=== PATIENT | male | born 1945 | race Caucasian/White ===

== ENCOUNTER 2022-07-22 14:33 | Emergency (ER) | payer OTHER, MEDICARE ==
[~2022-07-22] VITALS: Ht 175.3 cm; Wt 98.0 kg
[~2022-07-22 14:33] MED LIST: ALBU8.5H17 IH; ASPI-611 PO; ATOR20TA66 PO; CHOL10002 PO; CLOP75TA34 PO; CYAN500T46 PO; FLUT1BLS14 IH; LISI2.5T14 PO; MAGN250T11 PO; MECL-226 PO
[2022-07-22 16:55] LABS: BASOPHILS # (AUTO) 0.1 X10'3 (0-0.2); BASOPHILS % (AUTO) 0.6 % (0-1); EOSINOPHILS # (AUTO) 0.2 X10'3 (0-0.9); EOSINOPHILS % (AUTO) 1.8 % (0-6); HEMOGLOBIN 14.8 g/dl (14.0-17.9); LYMPHOCYTES # (AUTO) 1.5 X10'3 (1.1-4.8); LYMPHOCYTES % (AUTO) 13.4 % (21-51); MEAN CORPUSCULAR HEMOGLOBIN 29.5 PG (27.0-31.0); MEAN CORPUSCULAR HGB CONC 33.7 g/dL (33.0-36.5); MEAN CORPUSCULAR VOLUME 87.5 FL (78-98); MEAN PLATELET VOLUME 7.6 FL (7.4-10.4); MONOCYTES # (AUTO) 0.6 X10'3 (0-0.9); MONOCYTES % (AUTO) 5.5 % (2-12); NEUTROPHILS # (AUTO) 8.8 X10'3 (1.8-7.7); NEUTROPHILS % (AUTO) 78.7 % (42-75); PLATELET COUNT 364 X10'3 (140-440); RED BLOOD COUNT 5.03 X10'6 (4.70-6.10); RED CELL DISTRIBUTION WIDTH 14.5 % (11.5-14.5); WHITE BLOOD COUNT 11.2 X10'3 (4.5-11.0)
[2022-07-22 17:09] LABS: ALANINE AMINOTRANSFERASE 46 U/L (12-78); ALBUMIN 3.7 G/DL (3.4-5.0); ALBUMIN/GLOBULIN RATIO 1.1 (1.1-1.5); ALKALINE PHOSPHATASE 123 IU/L (46-116); ANION GAP 4 (8-16); ASPARTATE AMINO TRANSFERASE 21 U/L (10-37); BILIRUBIN,TOTAL 0.4 MG/DL (0.1-1.0); BLOOD UREA NITROGEN 13 MG/DL (7-18); BUN/CREATININE RATIO 13.3 (5.4-32.0); CALCIUM 9.7 MG/DL (8.5-10.1); CHLORIDE 106 MMOL/L (99-107); CREATININE 0.98 MG/DL (0.60-1.10); GLUCOSE 135 MG/DL (70-104); SODIUM 139 MMOL/L (135-145); TOTAL CARBON DIOXIDE 28.8 MMOL/L (24-32); eGFR 75 ML/MIN
--- NOTE | 2022-07-22 17:55 | NUR ---
Per MD the stroke alert is to get a CT head and compare the read to the previous one
[2022-07-22 18:00] VITALS: BP 132/74
[2022-07-22] MEDS ORDERED: iohexol 350MG/ML 100ml bottle IV ONE (18:05)
[2022-07-22] MEDS ORDERED: meclizine 12.5mg tablet PO ONE (18:40)
== END 2022-07-22 20:15 | disposition home or self-care (01) ==
LOC: ER 14:34
DX: R42 Dizziness and giddiness (principal); R11.2 Nausea with vomiting, unspecified; E78.00 Pure hypercholesterolemia, unspecified; I10 Essential (primary) hypertension; J45.909 Unspecified asthma, uncomplicated; E11.9 Type 2 diabetes mellitus without complications
CPT/HCPCS: 36415; 70450; 71045; 80053; 84484; 85025; 93005; 99285; J8597; J3490; Q9967

== ENCOUNTER 2023-02-26 05:30 | Inpatient (IN) | payer OTHER, MEDICARE ==
[~2023-02-26] VITALS: Ht 180.3 cm; Wt 103.0 kg
[~2023-02-26 05:30] MED LIST changes: -ATOR20TA66 PO; +ATOR40TA PO; +CLOP75TA33 PO; -CLOP75TA34 PO; +MECL-159 PO; -MECL-226 PO
[2023-02-26] MEDS ORDERED: iohexol 350MG/ML 100ml bottle IV ONE (05:48)
[2023-02-26 05:55] LABS: BASOPHILS % (AUTO) 0.3 % (0-1); EOSINOPHILS # (AUTO) 0.5 X10'3 (0-0.9); EOSINOPHILS % (AUTO) 3.3 % (0-6); HEMATOCRIT 46.4 % (42.0-52.0); HEMOGLOBIN 15.4 g/dl (14.0-17.9); LYMPHOCYTES # (AUTO) 1.1 X10'3 (1.1-4.8); LYMPHOCYTES % (AUTO) 7.9 % (21-51); MEAN CORPUSCULAR HEMOGLOBIN 29.1 PG (27.0-31.0); MEAN CORPUSCULAR HGB CONC 33.1 g/dL (33.0-36.5); MEAN CORPUSCULAR VOLUME 87.8 FL (78-98); MONOCYTES # (AUTO) 0.8 X10'3 (0-0.9); MONOCYTES % (AUTO) 5.6 % (2-12); NEUTROPHILS # (AUTO) 11.7 X10'3 (1.8-7.7); NEUTROPHILS % (AUTO) 82.9 % (42-75); PLATELET COUNT 318 X10'3 (140-440); RED BLOOD COUNT 5.28 X10'6 (4.70-6.10); RED CELL DISTRIBUTION WIDTH 14.3 % (11.5-14.5); WHITE BLOOD COUNT 14.2 X10'3 (4.5-11.0)
[2023-02-26] MEDS ORDERED: normal saline 1000ML IV soln IVB ONE (05:55)
[2023-02-26] MEDS ORDERED: normal saline 1000ml 1,000 ML IV ONE (05:55)
--- NOTE | 2023-02-26 06:12 | NUR ---
PT EXPRESSED NUMBNESS TO R SIDE OF FACE DOWN TO TOES.
[2023-02-26 06:31] LABS: APTT 27 SECONDS (22-32)
--- NOTE | 2023-02-26 06:44 | NUR ---
PT STATED "BATHROOM" TO THIS RN AND WAS ABLE TO EXPRESS THE NEED TO URINATE. THIS RN ASSISTED WITH URINAL AND PT WAS ABLE TO REMAIN CONTINENT.
[2023-02-26 07:00] LABS: ALANINE AMINOTRANSFERASE 51 U/L (12-78); ALBUMIN/GLOBULIN RATIO 1.3 (1.1-1.5); ALKALINE PHOSPHATASE 109 IU/L (46-116); ANION GAP 12 (8-16); ASPARTATE AMINO TRANSFERASE 24 U/L (10-37); BILIRUBIN,TOTAL 0.7 MG/DL (0.1-1.0); BLOOD UREA NITROGEN 25 MG/DL (7-18); CALCIUM 9.6 MG/DL (8.5-10.1); CHLORIDE 104 MMOL/L (99-107); GLUCOSE 155 MG/DL (70-104); POTASSIUM 3.7 MMOL/L (3.5-5.1); SODIUM 138 MMOL/L (135-145); TOTAL CARBON DIOXIDE 22.3 MMOL/L (24-32); TOTAL PROTEIN 7.1 G/DL (6.4-8.2); eGFR 73 ML/MIN
--- NOTE | 2023-02-26 07:00 | NUR ---
BLUE NICOL NEURO CONSULT COMPLETED, NEUROLOGIST TO CONFER WITH ER MD. VASCULAR US TECH AT BEDSIDE
[2023-02-26 07:02] LABS: CLARITY,URINE CLEAR (Clear); COLOR,URINE STRAW (Yellow); GLUCOSE, URINE NEGATIVE (Neg); KETONES,URINE NEGATIVE (Neg); LEUKOCYTE ESTERASE ,URINE NEGATIVE (Neg); NITRITES, URINE NEGATIVE (Neg); OCCULT BLOOD,URINE NEGATIVE (Neg); PROTEIN,URINE NEGATIVE (Neg); UROBILINOGEN,URINE 0.2 E.U/dL (0.2-1.0)
[2023-02-26 07:08] LABS: UA COLLECTION TYPE CLN CATCH MIDSTREAM
--- NOTE | 2023-02-26 07:10 | NUR ---
PTS AT BEDSIDE
[2023-02-26 07:12] LABS: URINE AMPHETAMINE SCREEN NEGATIVE (Neg); URINE BARBITUATE SCREEN NEGATIVE (Neg); URINE BENZODIAZEPINES SCREEN NEGATIVE (Neg); URINE CANNABINOID SCREEN NEGATIVE (Neg); URINE COCAINE SCREEN NEGATIVE (Neg); URINE METHADONE SCREEN NEGATIVE (Neg); URINE OPIATE SCREEN NEGATIVE (Neg); URINE PHENCYCLIDINE SCREEN NEGATIVE (Neg)
--- NOTE | 2023-02-26 07:40 | NUR ---
SPEECH THERAPY AT BEDSIDE FOR SWALLOW EVAL
--- NOTE | 2023-02-26 07:57 | NUR ---
TOTAL LINEN CHANGE PROVIDED WITH NEW GOWN. CONDOM CATH PLACED.
--- NOTE | 2023-02-26 09:11 | NUR ---
PER SPEECH THERAPY PT TO BE KEPT NPO AND RE EVALUATED IN THE AM.
--- NOTE | 2023-02-26 09:29 | NUR ---
PER DR MIKE GIVE 1 MG IV ATIVAN TO ADDRESS PTS HTN. IF NO IMPROVEMENT IN 10 MINUTES MAY REPEAT
[2023-02-26] MEDS ORDERED: LORazepam 2 mg/ml vial IV ONE ×2 (09:30)
[2023-02-26] MEDS ORDERED: FLUT1BLS14 IH (10:25)
[2023-02-26] MEDS ORDERED: CYAN500T46 PO (10:25)
[2023-02-26] MEDS ORDERED: ASPI-611 PO (10:25)
[2023-02-26] MEDS ORDERED: CLOP75TA33 PO (10:25)
[2023-02-26] MEDS ORDERED: ALBU8.5H17 IH (10:25)
[2023-02-26] MEDS ORDERED: LISI2.5T14 PO (10:25)
[2023-02-26] MEDS ORDERED: ATOR40TA PO (10:25)
[2023-02-26] MEDS ORDERED: CHOL10002 PO (10:25)
[2023-02-26] MEDS ORDERED: mag hydrox/Alum hydrox/simeth 30ml oral suspension PO PRN (11:20)
[2023-02-26] MEDS ORDERED: ondansetron/PF 4mg/2ml inj IV PRN (11:20)
[2023-02-26] MEDS ORDERED: acetaminophen 325mg tablet PO PRN (11:20)
[2023-02-26] MEDS ORDERED: magnesium 2GM in 50ml NS 50 ML IV PRN (11:20)
[2023-02-26] MEDS ORDERED: magnesium hydroxide 30ml (MOM) UD suspension PO PRN (11:20)
[2023-02-26] MEDS ORDERED: potassium Cl 40MEQ/1/2NS 520ml 520 ML IV PRN (11:20)
[2023-02-26] MEDS ORDERED: potassium Cl 20 mEq SR tablet PO PRN ×2 (11:20)
[2023-02-26] MEDS ORDERED: magnesium 4gm in 100ml NS 100 ML IV PRN (11:20)
[2023-02-26] MEDS ORDERED: magnesium Cl slow-release 64mg tablet PO PRN (11:20)
[2023-02-26] MEDS: normal saline 1000ml 1,000 ML IV SCH ×2 (11:24→22:30)
--- NOTE | 2023-02-26 11:27 | NUR ---
MRI SCREENING FORM FAXED
[2023-02-26 11:55] VITALS: BP 160/71
[2023-02-26] MEDS ORDERED: albuterol 2.5 MG/3 ML nebule NEB PRN (13:50)
[2023-02-26] MEDS ORDERED: albuterol 2.5 MG/3 ML nebule NEB SCH (14:00)
[2023-02-26] MEDS: albuterol 2.5 MG/3 ML nebule NEB SCH ×2 (15:26→20:37)
[2023-02-26 18:00] VITALS: BP 141/83
[2023-02-26] MEDS: K and/or MAG REPLACEMENT MC SCH (20:00)
[2023-02-26] MEDS ORDERED: docusate sod 100mg capsule PO SCH (20:00)
[2023-02-26] MEDS: budesonide 0.5mg/2ml UD nebule IH SCH (20:37)
[2023-02-26] MEDS: atorvastatin 20mg tablet PO SCH (21:00)
[2023-02-26 22:00] VITALS: BP 156/74
[2023-02-27 02:00] VITALS: BP 136/78
[2023-02-27] MEDS: albuterol 2.5 MG/3 ML nebule NEB SCH ×4 (03:08→20:56)
[2023-02-27 06:00] VITALS: BP 121/68
--- NOTE | 2023-02-27 06:12 | NUR ---
Problems reprioritized. Patient report given, questions answered & plan of care reviewed with JUANA GODINEZ.
--- NOTE | 2023-02-27 06:23 | NUR ---
Patient in room ORTHO 4010. I have received report from PAULA ARIAS and had the opportunity to ask questions and assume patient care.
[2023-02-27 06:58] LABS: BASOPHILS # (AUTO) 0.1 X10'3 (0-0.2); BASOPHILS % (AUTO) 0.6 % (0-1); EOSINOPHILS # (AUTO) 0.8 X10'3 (0-0.9); EOSINOPHILS % (AUTO) 9.4 % (0-6); HEMATOCRIT 42.1 % (42.0-52.0); HEMOGLOBIN 14.1 g/dl (14.0-17.9); LYMPHOCYTES # (AUTO) 1.4 X10'3 (1.1-4.8); LYMPHOCYTES % (AUTO) 15.6 % (21-51); MEAN CORPUSCULAR HEMOGLOBIN 29.4 PG (27.0-31.0); MEAN CORPUSCULAR HGB CONC 33.6 g/dL (33.0-36.5); MEAN CORPUSCULAR VOLUME 87.5 FL (78-98); MEAN PLATELET VOLUME 8.1 FL (7.4-10.4); MONOCYTES # (AUTO) 0.6 X10'3 (0-0.9); NEUTROPHILS % (AUTO) 67.4 % (42-75); PLATELET COUNT 289 X10'3 (140-440); RED BLOOD COUNT 4.81 X10'6 (4.70-6.10); RED CELL DISTRIBUTION WIDTH 14.1 % (11.5-14.5); WHITE BLOOD COUNT 8.8 X10'3 (4.5-11.0)
[2023-02-27 07:04] LABS: ALBUMIN 3.3 G/DL (3.4-5.0); ANION GAP 12 (8-16); BLOOD UREA NITROGEN 10 MG/DL (7-18); BUN/CREATININE RATIO 10.9 (10.0-20.0); CALCIUM 8.4 MG/DL (8.5-10.1); CHLORIDE 108 MMOL/L (99-107); CHOL/HDL RATIO 2.8 (0.00-4.99); CHOLESTEROL 129 MG/DL (0-200); CREATININE 0.92 MG/DL (0.60-1.10); GLUCOSE 128 MG/DL (70-104); HDL CHOLESTEROL 46 MG/DL (35-60); LDL CHOLESTEROL 60 MG/DL (50-100); MAGNESIUM 1.8 MG/DL (1.5-2.4); POTASSIUM 3.4 MMOL/L (3.5-5.1); SODIUM 143 MMOL/L (135-145); TOTAL CARBON DIOXIDE 23.5 MMOL/L (24-32); TRIGLYCERIDES 90 MG/DL (20-135); eGFR 80 ML/MIN
[2023-02-27] MEDS ORDERED: POTASSIUM BICARB 20meq eff tab 20 MEQ TABLET.EFF PO PRN (07:44)
[2023-02-27] MEDS: cholecalciferol (vitamin D3) 1,000 unit (25mcg) tablet PO SCH (07:55)
[2023-02-27] MEDS: budesonide 0.5mg/2ml UD nebule IH SCH ×2 (07:55→20:56)
[2023-02-27] MEDS: docusate sodium 100mg/10ml UD cup PO SCH ×2 (07:55→19:41)
[2023-02-27] MEDS: aspirin 81mg, enteric-coated 1 TAB TABLET.DR PO SCH (07:56)
[2023-02-27] MEDS: cyanocobalamin 500mcg tablet PO SCH (07:56)
[2023-02-27] MEDS: enoxaparin 40mg/0.4ml syringe SUBCUT SCH (07:57)
[2023-02-27] MEDS: POTASSIUM BICARB 20meq eff tab 20 MEQ TABLET.EFF PO PRN ×3 (07:57→19:40)
[2023-02-27] MEDS: clopidogrel 75mg tablet PO SCH (07:57)
[2023-02-27] MEDS: K and/or MAG REPLACEMENT MC SCH ×2 (08:00→20:00)
[2023-02-27] MEDS ORDERED: aspirin 300mg supp.rect RC SCH (08:00)
[2023-02-27] MEDS: lisinopril 2.5mg tablet PO SCH (08:00)
[2023-02-27] MEDS: normal saline 1000ml 1,000 ML IV SCH ×2 (08:11→17:25)
[2023-02-27 10:00] VITALS: BP 139/74
--- NOTE | 2023-02-27 10:23 | NUR ---
Page Sent PAGER ID: [phone] MESSAGE: [phone] b [address], pt has a aspirin suppository i already gave him the 81 mg . are you wanting him to have both? please let me know ashly. sonam [phone]
--- NOTE | 2023-02-27 11:20 | NUR ---
Page Sent PAGER ID: [phone] MESSAGE: [phone] CURRY, I NEED TO KNOW IF YOU WANT THIS PT TO HAVE THIS ASPIRIN SUPPOSITORY WELL PO ASPIRIN, SO PLEASE CALL ME SOON YOU CAN. THANKS GRETCHEN [phone]
--- NOTE | 2023-02-27 13:38 | NUR ---
PRESSURE ULCER EDUCATION: DEFINITION: A pressure ulcer is an area of skin that breaks down when you stay in one position too long. The constant pressure against the skin reduces the blood flow to that area and the affected tissue dies. CAUSES: "Being bedridden or in a wheelchair "Fragile skin "Having a chronic condition, such as diabetes or vascular disease "Inability to move certain parts of your body without assistance "Older age "Incontinence of urine or stool SYMPTOMS: "A reddened area that DOES NOT turn white when pressed on - this can be the beginning of a pressure ulcer "A blister, deep sore or a crater - these can be advanced pressure ulcers FIRST AID: "Relieve the pressure on this area "Keep the area clean and dry "Call your primary doctor if you see any of the above symptoms "DO NOT massage the area "DO NOT use a donut shaped or ring shaped pillow- these actually interfere with the blood flow and cause complications PREVENTION: "Check for pressure ulcers everyday "Change position at least every two hours to relieve pressure "Use items that help relieve pressure- pillows, sheepskin, foam padding, and powders. "Keep skin clean and dry "Eat healthy well balanced meals "Exercise daily IF YOU SEE ANY OF THESE SYMPTOMS WHILE IN THE HOSPITAL - TELL YOUR NURSE IMMEDIATELY. IF YOU SEE ANY OF THESE SYMPTOMS WHILE AT HOME OR HAVE ANY QUESTIONS OR CONCERNS ABOUT PRESSURE ULCERS - CALL YOUR PRIMARY DOCTOR IMMEDIATELY. Addendum: 02/27/23 at 1339 by Regulo Leone RN Amended: Links added.
[2023-02-27 18:00] VITALS: BP 148/80
--- NOTE | 2023-02-27 19:13 | NUR ---
Problems reprioritized. Patient report given, questions answered & plan of care reviewed with PAULA ARIAS.
[2023-02-27] MEDS: atorvastatin 20mg tablet PO SCH (20:52)
[2023-02-27 22:00] VITALS: BP 144/76
--- NOTE | 2023-02-28 00:30 | NUR ---
Patient in room ORTHO 4010. I have received report from JUANA Jimenez and had the opportunity to ask questions and assume patient care. checked on patient and helped him with his urinal.
--- NOTE | 2023-02-28 00:35 | NUR ---
Problems reprioritized. Patient report given, questions answered & plan of care reviewed with JUANA MAYNARD.
[2023-02-28 02:00] VITALS: BP 126/59
[2023-02-28] MEDS: normal saline 1000ml 1,000 ML IV SCH ×3 (03:01→23:20)
[2023-02-28] MEDS: albuterol 2.5 MG/3 ML nebule NEB SCH ×4 (03:17→20:41)
[2023-02-28 06:00] VITALS: BP 127/84
--- NOTE | 2023-02-28 06:16 | NUR ---
Problems reprioritized. Patient report given, questions answered & plan of care reviewed with JUANA Ventura.
[2023-02-28 06:36] LABS: BASOPHILS # (AUTO) 0.1 X10'3 (0-0.2); BASOPHILS % (AUTO) 0.7 % (0-1); EOSINOPHILS % (AUTO) 11.1 % (0-6); HEMATOCRIT 42.4 % (42.0-52.0); HEMOGLOBIN 14.2 g/dl (14.0-17.9); LYMPHOCYTES # (AUTO) 1.5 X10'3 (1.1-4.8); LYMPHOCYTES % (AUTO) 17.2 % (21-51); MEAN CORPUSCULAR HEMOGLOBIN 29.4 PG (27.0-31.0); MEAN CORPUSCULAR HGB CONC 33.6 g/dL (33.0-36.5); MEAN CORPUSCULAR VOLUME 87.5 FL (78-98); MEAN PLATELET VOLUME 7.8 FL (7.4-10.4); MONOCYTES # (AUTO) 0.6 X10'3 (0-0.9); MONOCYTES % (AUTO) 6.7 % (2-12); NEUTROPHILS # (AUTO) 5.5 X10'3 (1.8-7.7); NEUTROPHILS % (AUTO) 64.3 % (42-75); PLATELET COUNT 299 X10'3 (140-440); RED BLOOD COUNT 4.85 X10'6 (4.70-6.10); RED CELL DISTRIBUTION WIDTH 14.5 % (11.5-14.5); WHITE BLOOD COUNT 8.6 X10'3 (4.5-11.0)
[2023-02-28 06:45] LABS: ALBUMIN 3.5 G/DL (3.4-5.0); ANION GAP 9 (8-16); BLOOD UREA NITROGEN 9 MG/DL (7-18); BUN/CREATININE RATIO 9.6 (10.0-20.0); CALCIUM 8.9 MG/DL (8.5-10.1); CHLORIDE 108 MMOL/L (99-107); CREATININE 0.94 MG/DL (0.60-1.10); GLUCOSE 126 MG/DL (70-104); MAGNESIUM 2.1 MG/DL (1.5-2.4); POTASSIUM 3.7 MMOL/L (3.5-5.1); SODIUM 139 MMOL/L (135-145); TOTAL CARBON DIOXIDE 22.1 MMOL/L (24-32); eGFR 78 ML/MIN
--- NOTE | 2023-02-28 06:55 | NUR ---
Patient in room ORTHO 4010. I have received report from Pearl and had the opportunity to ask questions and assume patient care.
[2023-02-28] MEDS: K and/or MAG REPLACEMENT MC SCH ×2 (07:05→20:00)
[2023-02-28] MEDS: budesonide 0.5mg/2ml UD nebule IH SCH ×2 (07:23→20:41)
[2023-02-28] MEDS: cholecalciferol (vitamin D3) 1,000 unit (25mcg) tablet PO SCH (08:50)
[2023-02-28] MEDS: clopidogrel 75mg tablet PO SCH (08:50)
[2023-02-28] MEDS: lisinopril 2.5mg tablet PO SCH (08:51)
[2023-02-28] MEDS: cyanocobalamin 500mcg tablet PO SCH (08:51)
[2023-02-28] MEDS: docusate sodium 100mg/10ml UD cup PO SCH ×2 (08:51→21:20)
[2023-02-28] MEDS: aspirin 81mg, enteric-coated 1 TAB TABLET.DR PO SCH (08:51)
[2023-02-28] MEDS: enoxaparin 40mg/0.4ml syringe SUBCUT SCH (08:52)
[2023-02-28 10:00] VITALS: BP 158/74
[2023-02-28 18:00] VITALS: BP 126/76
--- NOTE | 2023-02-28 20:33 | NUR ---
Patient in room ORTHO 4010. I have received report from Andrews ARIAS and had the opportunity to ask questions and assume patient care.
[2023-02-28] MEDS: atorvastatin 20mg tablet PO SCH (21:20)
[2023-02-28 22:00] VITALS: BP 168/92
[2023-03-01 02:46] VITALS: BP 172/80
[2023-03-01] MEDS: albuterol 2.5 MG/3 ML nebule NEB SCH ×3 (03:00→15:48)
[2023-03-01 06:00] VITALS: BP 158/96
[2023-03-01 06:12] LABS: ALBUMIN 3.3 G/DL (3.4-5.0); ANION GAP 7 (8-16); BLOOD UREA NITROGEN 12 MG/DL (7-18); BUN/CREATININE RATIO 12.6 (10.0-20.0); CALCIUM 8.8 MG/DL (8.5-10.1); CHLORIDE 108 MMOL/L (99-107); CREATININE 0.95 MG/DL (0.60-1.10); GLUCOSE 115 MG/DL (70-104); MAGNESIUM 2.2 MG/DL (1.5-2.4); POTASSIUM 3.6 MMOL/L (3.5-5.1); SODIUM 140 MMOL/L (135-145); TOTAL CARBON DIOXIDE 25.3 MMOL/L (24-32); eGFR 77 ML/MIN
[2023-03-01 06:27] LABS: BASOPHILS # (AUTO) 0.1 X10'3 (0-0.2); BASOPHILS % (AUTO) 0.7 % (0-1); EOSINOPHILS % (AUTO) 11.1 % (0-6); HEMATOCRIT 42.2 % (42.0-52.0); HEMOGLOBIN 14.2 g/dl (14.0-17.9); LYMPHOCYTES # (AUTO) 1.7 X10'3 (1.1-4.8); LYMPHOCYTES % (AUTO) 19.5 % (21-51); MEAN CORPUSCULAR HEMOGLOBIN 29.7 PG (27.0-31.0); MEAN CORPUSCULAR HGB CONC 33.6 g/dL (33.0-36.5); MEAN CORPUSCULAR VOLUME 88.4 FL (78-98); MONOCYTES # (AUTO) 0.6 X10'3 (0-0.9); MONOCYTES % (AUTO) 7.3 % (2-12); NEUTROPHILS # (AUTO) 5.3 X10'3 (1.8-7.7); NEUTROPHILS % (AUTO) 61.4 % (42-75); PLATELET COUNT 299 X10'3 (140-440); RED BLOOD COUNT 4.78 X10'6 (4.70-6.10); RED CELL DISTRIBUTION WIDTH 14.6 % (11.5-14.5); WHITE BLOOD COUNT 8.6 X10'3 (4.5-11.0)
--- NOTE | 2023-03-01 06:34 | NUR ---
patient appeared agitated at times, wanting "things" organized, as in his gown straightened, IV repositioned, and everything in order! IV repositioned in right hand. Seen by RT for tmts. Comfortable t time of report. Report given to Giorgio ARIAS
--- NOTE | 2023-03-01 06:50 | NUR ---
Patient in room ORTHO 4010. I have received report from Magdalene and had the opportunity to ask questions and assume patient care.
[2023-03-01] MEDS: K and/or MAG REPLACEMENT MC SCH (06:51)
[2023-03-01] MEDS: budesonide 0.5mg/2ml UD nebule IH SCH (08:00)
[2023-03-01] MEDS: docusate sodium 100mg/10ml UD cup PO SCH (08:00)
[2023-03-01] MEDS: clopidogrel 75mg tablet PO SCH (08:23)
[2023-03-01] MEDS: cyanocobalamin 500mcg tablet PO SCH (08:23)
[2023-03-01] MEDS: aspirin 81mg, enteric-coated 1 TAB TABLET.DR PO SCH (08:23)
[2023-03-01] MEDS: cholecalciferol (vitamin D3) 1,000 unit (25mcg) tablet PO SCH (08:23)
[2023-03-01] MEDS: lisinopril 2.5mg tablet PO SCH (08:24)
[2023-03-01] MEDS: enoxaparin 40mg/0.4ml syringe SUBCUT SCH (08:31)
[2023-03-01 09:45] VITALS: BP 141/73
== END 2023-03-01 16:45 | DRG 65 ==
LOC: ER 05:31 → ED HOLD 11:21 → ORTHO 4S 11:45
PROVIDERS: ADMIT Family Medicine; ATTEND Family Medicine
PROC: B3251ZZ Computerized Tomography (CT Scan) of Bilateral Common Carotid Arteries using Low Osmolar Contrast (ICD-10-PCS; principal; 2023-02-26)
PROC: B32G1ZZ Computerized Tomography (CT Scan) of Bilateral Vertebral Arteries using Low Osmolar Contrast (ICD-10-PCS; 2023-02-26)
PROC: B32R1ZZ Computerized Tomography (CT Scan) of Intracranial Arteries using Low Osmolar Contrast (ICD-10-PCS; 2023-02-26)
PROC: B3281ZZ Computerized Tomography (CT Scan) of Bilateral Internal Carotid Arteries using Low Osmolar Contrast (ICD-10-PCS; 2023-02-26)
DX: I63.89 Other cerebral infarction (principal); G81.91 Hemiplegia, unspecified affecting right dominant side; R47.01 Aphasia; E11.9 Type 2 diabetes mellitus without complications; R29.711 NIHSS score 11; R47.1 Dysarthria and anarthria; E78.00 Pure hypercholesterolemia, unspecified; I10 Essential (primary) hypertension; J45.909 Unspecified asthma, uncomplicated; Z85.46 Personal history of malignant neoplasm of prostate; Z87.891 Personal history of nicotine dependence; Z79.02 Long term (current) use of antithrombotics/antiplatelets; Z79.899 Other long term (current) drug therapy; Z79.82 Long term (current) use of aspirin
CPT/HCPCS: 36415; 70450; 70496; 70498; 70544; 70551; 71045; 80048; 80053; 80061; 80305; 81003; 83735; 85025; 85610; 85730; 86885; 86900; 86901; 92508; 92616; 93005; 93306; 93880; 94640; 94760; 97116; 97161; 97530; 99285; A4314; A4349; A6446; G0378; J1650; J2060; J3490; J7030; Q9967